=== PATIENT | female | born 1950 | race Hispanic/Latino ===

== ENCOUNTER 2018-07-18 08:50 | Day surgery (SDC) | payer MEDICARE ==
[2016-10-30 12:27] VITALS: BMI 38.2
[2018-07-18] MEDS ORDERED: Lactated Ringer's 1,000 ML IV SCH (10:00)
[2018-07-18] MEDS ORDERED: Propofol 10 mg/ml Inj (20 ML) ONE (10:20)
[2018-07-18 11:13] VITALS: RESP 16
[2018-07-18 11:28] VITALS: O2SAT 97
[2018-07-18 13:34] VITALS: BP 112/73; PULSE 60; TEMP 98
== END 2018-07-18 12:58 | disposition home or self-care (01) ==
LOC: ENDO 08:50
PROVIDERS: ATTEND Internal Medicine Gastroenterology
DX: K59.00 Constipation, unspecified (principal); R19.4 Change in bowel habit; K57.30 Diverticulosis of large intestine without perforation or abscess without bleeding; K64.8 Other hemorrhoids; Z98.0 Intestinal bypass and anastomosis status; I10 Essential (primary) hypertension; E78.5 Hyperlipidemia, unspecified
CPT/HCPCS: 45378; J2001; J2704; J7040; J7120